=== PATIENT | male | born 1970 | race Caucasian/White ===

== ENCOUNTER 2016-08-12 20:49 | Emergency (ER) | payer OTHER ==
[2016-08-12 20:55] VITALS: RESP 16
--- NOTE | 2016-08-12 21:22 | ED ---
General Adult HPI - General Chief complaint: Extremity Injury, Lower Stated complaint: R knee swelling Time Seen by Provider: 08/12/16 20:58 Source: patient Mode of arrival: ambulatory Limitations: no limitations - History of Present Illness Initial comments: Eliud Oropeza is a 45-year-old male with past medical history of Crohn's disease who presents to the emergency department for evaluation of acute right knee pain. The patient reports he has had no injury to that knee. He woke from sleep at 1 AM today with aching pain in his knee. He reports he took some Motrin and was able to sleep until 4 AM at which time his again woken with pain in his knee. Patient reports that the pain is constant, worse with movement. He works in a construction job and states that he has been unable to perform his duties today due to pain in his knee and inability to kneel to perform his tasks. He denies any history of previous injury or instrumentation of the knee. He denies any history of gout. He is never experienced anything like this and this knee before. He denies any systemic symptoms, specifically any fevers, chills, nausea or vomiting. - Related Data Home Medications Medication Instructions Recorded Confirmed Ibuprofen [Motrin] 800 mg PO ONCE PRN 08/12/16 08/12/16 Allergies Allergy/AdvReac Type Severity Reaction Status Date / Time No Known Allergies Allergy Verified 08/12/16 21:02 Review of Systems ROS Statement: Those systems with pertinent positive or pertinent negative responses have been documented in the HPI. ROS Other: All systems not noted in ROS Statement are negative. Constitutional: Denies: fever, chills Respiratory: Denies: dyspnea Cardiovascular: Denies: chest pain Endocrine: Denies: fatigue Gastrointestinal: Denies: nausea, vomiting Musculoskeletal: Reports: joint swelling, arthralgia. Denies: back pain, myalgia Skin: Denies: rash, lesions Neurological: Denies: headache, weakness Hematological/Lymphatic: Denies: easy bleeding, easy bruising Past Medical History Additional Past Medical History / Comment(s): Chron's History of Any Multi-Drug Resistant Organisms: None Reported Past Surgical History: Bowel Resection Past Anesthesia/Blood Transfusion Reactions: No Reported Reaction Past Psychological History: No Psychological Hx Reported Smoking Status: Current every day smoker Past Alcohol Use History: None Reported Past Drug Use History: None Reported - Past Family History Mother Family Medical History: No Reported History General Exam Limitations: no limitations General appearance: alert, in no apparent distress Head exam: Present: atraumatic, normocephalic, normal inspection Eye exam: Present: normal appearance, PERRL, EOMI. Absent: scleral icterus, conjunctival injection, periorbital swelling ENT exam: Present: normal exam, mucous membranes moist Neck exam: Present: normal inspection. Absent: tenderness, meningismus, lymphadenopathy Respiratory exam: Present: normal lung sounds bilaterally. Absent: respiratory distress, wheezes, rales, rhonchi, stridor Cardiovascular Exam: Present: regular rate, normal rhythm, normal heart sounds. Absent: systolic murmur, diastolic murmur, rubs, gallop, clicks GI/Abdominal exam: Present: soft, normal bowel sounds. Absent: distended, tenderness, guarding, rebound, rigid Rectal exam: Present: deferred Extremities exam: Present: tenderness Right Knee exam: Present: tenderness, swelling, effusion, full knee extension. Absent : laceration, ecchymosis, deformity, dislocation, erythema, posterior draw sign Course Vital Signs 08/12/16 20:51 Temperature 97.9 F Pulse Rate 95 Respiratory 16 Rate Blood Pressure 144/85 O2 Sat by Pulse 98 Oximetry - Reevaluation(s) Reevaluation #1: Patient reassessed, lab and x-ray findings were discussed with the patient. Patient reports only minimal improvement in the pain after IV toradol. I advised the patient that we will have to perform arthrocentesis to assess for septic joint vs gout. Patient agreeable. 08/12/16 22:45 Reevaluation #2: Patient was reevaluated, risks and benefits of arthrocentesis were discussed. Patient reports nearly complete resolution of his pain after IV Toradol. Patient doesn't feel there is any indication for arthrocentesis at this time. Patient is agreeable to plan for discharge home with supportive care, rest ice compression and elevation of the knee. As well as NSAIDs for anti- inflammatory. Patient reports he'll call his PCP on Monday for follow-up or return to the ER for any acute worsening. 08/12/16 23:42 Medical Decision Making - Medical Decision Making Patient seen and examined, physical exam with right knee effusion and pain. Knee is warm to touch but no erythema. Vital signs with no SIRS criteria Labs and Toradol ordered As of mild leukocytosis, discussed with patient arthrocentesis for definitive diagnosis of inflammatory arthritis versus gout versus septic joint. Physical exam is not consistent with septic joint. Have high suspicion that this is inflammatory. Patient reported complete resolution of his pain after IV Toradol and is agreeable to plan for discharge home with close follow-up. Renee patient to return to the ED if he develops any fevers, chills, nausea or vomiting. Any acute worsening in the knee, any erythema or decreased range of motion of the knee. Patient and at bedside expressed understanding and agreement with the plan - Lab Data Result diagrams: 08/12/16 21:30 08/12/16 21:30 Lab Results 08/12/16 08/12/16 Range/Units 21:30 21:30 WBC 11.7 H (3.8-10.6) k/uL RBC 5.08 (4.30-5.90) m/uL Hgb 15.2 (13.0-17.5) gm/dL Hct 42.5 (39.0-53.0) % MCV 83.7 (80.0-100.0) fL MCH 29.9 (25.0-35.0) pg MCHC 35.6 (31.0-37.0) g/dL RDW 13.2 (11.5-15.5) % Plt Count 215 (150-450) k/uL Neutrophils % 69 % Lymphocytes % 20 % Monocytes % 7 % Eosinophils % 2 % Basophils % 0 % Neutrophils # 8.1 H (1.3-7.7) k/uL Lymphocytes # 2.4 (1.0-4.8) k/uL Monocytes # 0.8 (0-1.0) k/uL Eosinophils # 0.2 (0-0.7) k/uL Basophils # 0.1 (0-0.2) k/uL Sodium 138 (137-145) mmol/L Potassium 3.8 (3.5-5.1) mmol/L Chloride 104 (98-107) mmol/L Carbon Dioxide 23 (22-30) mmol/L Anion Gap 11 mmol/L BUN 16 (9-20) mg/dL Creatinine 0.91 (0.66-1.25) mg/dL Est GFR (MDRD) Af Amer >60 (>60 ml/min/1.73 sqM) Est GFR (MDRD) Non-Af >60 (>60 ml/min/1.73 sqM) Glucose 149 H (74-99) mg/dL Calcium 8.9 (8.4-10.2) mg/dL Disposition Clinical Impression: Knee effusion, right Disposition: HOME SELF-CARE Condition: Good Instructions: Knee Pain (ED) Referrals: Isiah Mancilla MD [Primary Care Provider] - 1-2 days
[2016-08-12] MEDS ORDERED: KETOROLAC 30 MG/ML 1 ML VIAL IVP ONE (21:26)
[2016-08-12 21:44] LABS: Basophils # (A) 0.1 k/uL (0-0.2); Basophils % (A) 0 %; CH 28.9; CHCM 34.7; Eosinophils # (A) 0.2 k/uL (0-0.7); Eosinophils % (A) 2 %; HCT 42.5 % (39.0-53.0); HDW 2.42; HGB 15.2 gm/dL (13.0-17.5); Luc # (Auto) 0.18; Luc % (Auto) 2; Lymphocytes # (A) 2.4 k/uL (1.0-4.8); Lymphocytes % (A) 20 %; MCH 29.9 pg (25.0-35.0); MCHC 35.6 g/dL (31.0-37.0); MCV 83.7 fL (80.0-100.0); Mean Platelet Volume 6.8; Monocytes # (A) 0.8 k/uL (0-1.0); Monocytes % (A) 7 %; Neutrophils # (A) 8.1 k/uL (1.3-7.7); Neutrophils % (A) 69 %; RBC 5.08 m/uL (4.30-5.90); RDW 13.2 % (11.5-15.5); WBC 11.7 k/uL (3.8-10.6); WBC (Perox) 12.18
--- NOTE | 2016-08-12 21:53 | XR ---
EXAMINATION TYPE: XR knee complete RT DATE OF EXAM: 08/12/2016 COMPARISON: NONE HISTORY: Knee swelling TECHNIQUE: 3 views FINDINGS: I see no fracture nor dislocation. Joint spaces are normal. IMPRESSION: Negative right knee exam
[2016-08-12 21:58] LABS: Anion Gap 11 mmol/L; Blood Urea Nitrogen 16 mg/dL (9-20); Calcium 8.9 mg/dL (8.4-10.2); Carbon Dioxide 23 mmol/L (22-30); Chloride 104 mmol/L (98-107); Glucose 149 mg/dL (74-99); Non-African American GFR(MDRD) >60 (>60 ml/min/1.73 sqM); Potassium 3.8 mmol/L (3.5-5.1); Sodium 138 mmol/L (137-145)
[2016-08-12] MEDS ORDERED: ETHYL CHLORIDE 103.5 ML SPRAY TOPICAL ONE (22:28)
[2016-08-13 00:08] VITALS: BP 122/64; PULSE 64; TEMP 97.6
== END 2016-08-13 00:07 | disposition home or self-care (01) ==
LOC: EC 20:49
DX: M25.461 Effusion, right knee (principal); D72.829 Elevated white blood cell count, unspecified; F17.200 Nicotine dependence, unspecified, uncomplicated
CPT/HCPCS: 36415; 80048; 85025; 73562; 99283; 96374; J1885

== ENCOUNTER 2019-02-24 05:19 | Emergency (ER) | payer OTHER ==
[2019-02-24] MEDS ORDERED: SODIUM CHLORIDE 0.9% 1,000 ML IV STA ×2 (05:34)
[2019-02-24] MEDS ORDERED: MORPHINE SULFATE 4 MG/ML SYRINGE IV STA (05:34)
[2019-02-24] MEDS ORDERED: ONDANSETRON 4 MG/2 ML VIAL IVP STA (05:34)
[2019-02-24] MEDS ORDERED: PANTOPRAZOLE 40 MG/10 ML VIAL IVP STA (05:34)
--- NOTE | 2019-02-24 05:35 | ED ---
Abdominal Pain HPI - General Chief Complaint: Abdominal Pain Stated Complaint: abd pain Source: patient, RN notes reviewed, old records reviewed Mode of arrival: ambulatory - History of Present Illness Initial Comments: This is a 48-year-old male here for evaluation of abdominal surgery secondary to legalese maybe Crohn's. No formal diagnosis. No other medical history takes no medications currently. Patient has had abdominal pain throughout the day with nausea no vomiting he had a bowel movement today normal no blood. Patient is a colonoscopy that was negative in the past and is follow-up with GI. MD Complaint: abdominal pain -: hour(s) Location: diffuse, epigastric Radiation: LLQ Migration to: no migration Severity: moderate Severity scale (1-10): 4 Quality: cramping, stabbing Consistency: intermittent Improves With: nothing Worsens With: nothing Associated Symptoms: nausea, constipation - Related Data Home Medications Medication Instructions Recorded Confirmed Ibuprofen [Motrin] 800 mg PO ONCE PRN 08/12/16 08/12/16 Allergies Allergy/AdvReac Type Severity Reaction Status Date / Time No Known Allergies Allergy Verified 08/12/16 21:02 Review of Systems ROS Statement: Those systems with pertinent positive or pertinent negative responses have been documented in the HPI. ROS Other: All systems not noted in ROS Statement are negative. Past Medical History Additional Past Medical History / Comment(s): Chron's History of Any Multi-Drug Resistant Organisms: None Reported Past Surgical History: Bowel Resection Past Anesthesia/Blood Transfusion Reactions: No Reported Reaction Past Psychological History: No Psychological Hx Reported Smoking Status: Current every day smoker Past Alcohol Use History: None Reported Past Drug Use History: None Reported - Past Family History Mother Family Medical History: No Reported History General Exam General appearance: alert, in no apparent distress Head exam: Present: atraumatic, normocephalic, normal inspection Eye exam: Present: normal appearance, PERRL, EOMI. Absent: scleral icterus, conjunctival injection, periorbital swelling ENT exam: Present: normal exam, mucous membranes moist Neck exam: Present: normal inspection. Absent: tenderness, meningismus, lymphadenopathy Respiratory exam: Present: normal lung sounds bilaterally. Absent: respiratory distress, wheezes, rales, rhonchi, stridor Cardiovascular Exam: Present: regular rate, normal rhythm, normal heart sounds. Absent: systolic murmur, diastolic murmur, rubs, gallop, clicks GI/Abdominal exam: Present: soft, normal bowel sounds. Absent: distended, tenderness, guarding, rebound, rigid Extremities exam: Present: normal inspection, full ROM, normal capillary refill. Absent: tenderness, pedal edema, joint swelling, calf tenderness Back exam: Present: normal inspection Neurological exam: Present: alert, oriented X3, CN II-XII intact Psychiatric exam: Present: normal affect, normal mood Skin exam: Present: warm, dry, intact, normal color. Absent: rash Course Vital Signs 02/24/19 02/24/19 02/24/19 05:25 07:28 08:10 Temperature 97.8 F 98.1 F 98.1 F Pulse Rate 88 75 75 Respiratory 18 16 16 Rate Blood Pressure 148/92 140/95 140/95 O2 Sat by Pulse 95 99 99 Oximetry - Reevaluation(s) Reevaluation #1: Medical records reviewed Patient has adequate pain control no active nausea vomiting Medical Decision Making - Medical Decision Making 48 male the ER with possible diagnosis and history of Crohn's he is not presents that he has caused has had no issue Crohn's last [address] abdomen and pelvis shows maybe about ileus. Patient is eating and passing bowel movements, patient can be discharged home - Lab Data Result diagrams: 02/24/19 05:51 02/24/19 05:51 Lab Results 02/24/19 02/24/19 02/24/19 Range/Units 05:51 05:51 05:51 WBC 13.6 H (3.8-10.6) k/uL RBC 5.94 H (4.30-5.90) m/uL Hgb 17.2 (13.0-17.5) gm/dL Hct 51.6 (39.0-53.0) % MCV 86.9 (80.0-100.0) fL MCH 28.9 (25.0-35.0) pg MCHC 33.2 (31.0-37.0) g/dL RDW 13.1 (11.5-15.5) % Plt Count 243 (150-450) k/uL Neutrophils % 85 % Lymphocytes % 9 % Monocytes % 4 % Eosinophils % 1 % Basophils % 0 % Neutrophils # 11.6 H (1.3-7.7) k/uL Lymphocytes # 1.3 (1.0-4.8) k/uL Monocytes # 0.5 (0-1.0) k/uL Eosinophils # 0.2 (0-0.7) k/uL Basophils # 0.1 (0-0.2) k/uL Sodium 138 (137-145) mmol/L Potassium 4.5 (3.5-5.1) mmol/L Chloride 106 (98-107) mmol/L Carbon Dioxide 23 (22-30) mmol/L Anion Gap 9 mmol/L BUN 13 (9-20) mg/dL Creatinine 0.69 (0.66-1.25) mg/dL Est GFR (CKD-EPI)AfAm >90 (>60 ml/min/1.73 sqM) Est GFR (CKD-EPI)NonAf >90 (>60 ml/min/1.73 sqM) Glucose 157 H (74-99) mg/dL Plasma Lactic Acid Grady 1.7 (0.7-2.0) mmol/L Calcium 9.7 (8.4-10.2) mg/dL Total Bilirubin 0.9 (0.2-1.3) mg/dL AST 29 (17-59) U/L ALT 39 (4-49) U/L Alkaline Phosphatase 75 (38-126) U/L Total Protein 7.5 (6.3-8.2) g/dL Albumin 4.2 (3.5-5.0) g/dL Amylase 48 (30-110) U/L Lipase 71 (23-300) U/L Urine Color Urine Appearance (Clear) Urine pH (5.0-8.0) Ur Specific Bennett (1.001-1.035) Urine Protein (Negative) Urine Glucose (UA) (Negative) Urine Ketones (Negative) Urine Blood (Negative) Urine Nitrite (Negative) Urine Bilirubin (Negative) Urine Urobilinogen (<2.0) mg/dL Ur Leukocyte Esterase (Negative) 02/24/19 Range/Units 05:51 WBC (3.8-10.6) k/uL RBC (4.30-5.90) m/uL Hgb (13.0-17.5) gm/dL Hct (39.0-53.0) % MCV (80.0-100.0) fL MCH (25.0-35.0) pg MCHC (31.0-37.0) g/dL RDW (11.5-15.5) % Plt Count (150-450) k/uL Neutrophils % % Lymphocytes % % Monocytes % % Eosinophils % % Basophils % % Neutrophils # (1.3-7.7) k/uL Lymphocytes # (1.0-4.8) k/uL Monocytes # (0-1.0) k/uL Eosinophils # (0-0.7) k/uL Basophils # (0-0.2) k/uL Sodium (137-145) mmol/L Potassium (3.5-5.1) mmol/L Chloride (98-107) mmol/L Carbon Dioxide (22-30) mmol/L Anion Gap mmol/L BUN (9-20) mg/dL Creatinine (0.66-1.25) mg/dL Est GFR (CKD-EPI)AfAm (>60 ml/min/1.73 sqM) Est GFR (CKD-EPI)NonAf (>60 ml/min/1.73 sqM) Glucose (74-99) mg/dL Plasma Lactic Acid Grady (0.7-2.0) mmol/L Calcium (8.4-10.2) mg/dL Total Bilirubin (0.2-1.3) mg/dL AST (17-59) U/L ALT (4-49) U/L Alkaline Phosphatase (38-126) U/L Total Protein (6.3-8.2) g/dL Albumin (3.5-5.0) g/dL Amylase (30-110) U/L Lipase (23-300) U/L Urine Color Yellow Urine Appearance Clear (Clear) Urine pH 6.0 (5.0-8.0) Ur Specific Bennett 1.019 (1.001-1.035) Urine Protein Negative (Negative) Urine Glucose (UA) Negative (Negative) Urine Ketones Negative (Negative) Urine Blood Negative (Negative) Urine Nitrite Negative (Negative) Urine Bilirubin Negative (Negative) Urine Urobilinogen <2.0 (<2.0) mg/dL Ur Leukocyte Esterase Negative (Negative) - Radiology Data Radiology results: report reviewed (CT pelvis shows dilated small bowel obstruction), image reviewed Disposition Clinical Impression: Abdominal pain Disposition: HOME SELF-CARE Condition: Good Instructions (If sedation given, give patient instructions): Abdominal Pain (ED ) Is patient prescribed a controlled substance at d/c from ED?: No Referrals: Isiah Mancilla MD [Primary Care Provider] - 1-2 days
[2019-02-24 06:07] LABS: Basophils # (A) 0.1 k/uL (0-0.2); Basophils % (A) 0 %; Eosinophils # (A) 0.2 k/uL (0-0.7); Eosinophils % (A) 1 %; HCT 51.6 % (39.0-53.0); HGB 17.2 gm/dL (13.0-17.5); Lymphocytes # (A) 1.3 k/uL (1.0-4.8); Lymphocytes % (A) 9 %; MCH 28.9 pg (25.0-35.0); MCHC 33.2 g/dL (31.0-37.0); MCV 86.9 fL (80.0-100.0); Mean Platelet Volume 7.4; Monocytes # (A) 0.5 k/uL (0-1.0); Monocytes % (A) 4 %; Neutrophils # (A) 11.6 k/uL (1.3-7.7); Neutrophils % (A) 85 %; Platelet Count 243 k/uL (150-450); RBC 5.94 m/uL (4.30-5.90); RDW 13.1 % (11.5-15.5); WBC 13.6 k/uL (3.8-10.6)
[2019-02-24 06:08] LABS: Appearance,Urine Clear (Clear); Bilirubin,Urine Negative (Negative); Blood,Urine Negative (Negative); Color,Urine Yellow; Glucose,Urine (UA) Negative (Negative); Ketones,Urine Negative (Negative); Leukocyte Esterase,Urine Negative (Negative); Nitrite,Urine Negative (Negative); Protein,Urine Negative (Negative); Specific Gravity,Urine 1.019 (1.001-1.035); Urobilinogen,Urine <2.0 mg/dL (<2.0)
[2019-02-24 06:16] LABS: ALT 39 U/L (4-49); AST 29 U/L (17-59); African American GFR (CKD) >90 (>60 ml/min/1.73 sqM); Albumin 4.2 g/dL (3.5-5.0); Alkaline Phosphatase 75 U/L (38-126); Amylase 48 U/L (30-110); Anion Gap 9 mmol/L; Blood Urea Nitrogen 13 mg/dL (9-20); Calcium 9.7 mg/dL (8.4-10.2); Carbon Dioxide 23 mmol/L (22-30); Chloride 106 mmol/L (98-107); Glucose 157 mg/dL (74-99); Non-African American GFR(CKD) >90 (>60 ml/min/1.73 sqM); Potassium 4.5 mmol/L (3.5-5.1); Sodium 138 mmol/L (137-145); Total Bilirubin 0.9 mg/dL (0.2-1.3); Total Protein 7.5 g/dL (6.3-8.2)
--- NOTE | 2019-02-24 06:20 | XR ---
EXAMINATION TYPE: XR abdomen acute w cxr DATE OF EXAM: 02/24/2019 COMPARISON: NONE HISTORY: Short of breath TECHNIQUE: 4 views FINDINGS: Chest x-ray shows no heart failure nor confluent pneumonic infiltrate. There is distended gas-filled loop of small bowel in the mid abdomen. There is no evidence of free ai r. There are no pathologic calcifications over the kidneys. IMPRESSION: Distended fluid and gas-filled small bowel loops could relate to ileus or partial obstruc tion of the small bowel. No free air. No active cardiopulmonary disease.
--- NOTE | 2019-02-24 07:04 | CT ---
EXAMINATION TYPE: CT abdomen pelvis w con DATE OF EXAM: 02/24/2019 COMPARISON: None HISTORY: Left lower quadrant pain CT DLP: 2204.7 mGycm Automated exposure control for dose reduction was used. CONTRAST: Performed with IV Contrast, patient injected with 100 mL of Isovue 300. Multiple axial sections were obtained from the diaphragm to the floor the pelvis with IV contrast. Lung bases are clear of infiltrate. There is no pleural effusion. Heart size is normal. There is no p ericardial effusion. Liver spleen pancreas gallbladder appear normal. Bile ducts are not dilated. Stomach appears normal. There is no adrenal mass. Kidneys show satisfactory contrast opacification. There is no hydronephrosi s. Ureters are not dilated. Bladder distends smoothly. There is no inguinal hernia. There is no free fluid in the pelvis. There a re scattered sigmoid diverticula. There are surgical clips at the cecum. There are some distended flu id filled loops of distal ileum. There is some fecal material in the distal ileum. Ileum measures up to 3 cm. Appendix is not seen. There is no sign of thickened appendix. There is no sign of free air. I see no mesenteric edema. There is no ascites. There is some narrowing of the lumbar disc spaces with vacuum disc. There is no compression fracture. IMPRESSION: Mildly dilated distal ileum suggestive of partial mechanical obstruction. Transition point is the ile ocecal valve. I do not see any significant wall thickening to suggest inflammatory bowel disease.
[2019-02-24] MEDS ORDERED: ACET/COD 300 MG/30 MG STARTER PACK 6 TAB BTL PO STA (07:21)
[2019-02-24] MEDS ORDERED: DIAZEPAM 5 MG TAB PO STA (07:21)
[2019-02-24] MEDS ORDERED: LORazepam 2 MG/ML INJ IV STA (07:21)
[2019-02-24] MEDS ORDERED: KETOROLAC 30 MG/ML 1 ML VIAL IVP STA (07:21)
[2019-02-24] MEDS ORDERED: ONDANSETRON 4 MG ODT STARTER PACK 2 TAB BTL PO STA (07:21)
[2019-02-24 07:29] VITALS: BP 140/95; PULSE 75; RESP 16; TEMP 98.1
== END 2019-02-24 08:10 | disposition home or self-care (01) ==
LOC: EC 05:19
DX: R10.84 Generalized abdominal pain (principal); R11.0 Nausea; K59.00 Constipation, unspecified; F17.200 Nicotine dependence, unspecified, uncomplicated; Z90.49 Acquired absence of other specified parts of digestive tract; Z87.19 Personal history of other diseases of the digestive system; Z53.20 Procedure and treatment not carried out because of patient's decision for unspecified reasons
CPT/HCPCS: 36415; 80053; 82150; 83605; 83690; 85025; 81003; 74022; 74177; 99285; 96374; 96375 ×3; 96361; J2060; J2405; J1885; S0119; C9113; Q9967